=== PATIENT | male | born 1945 | race Caucasian/White ===

== ENCOUNTER → 2020-05-27 08:20 | Outpatient (CLI) | payer MEDICARE, OTHER, SELFPAY | PROVIDERS: Family Provider Family Medicine; PCP Family Medicine; Referring Provider Anesthesiology Pain Medicine; Visit Provider Anesthesiology Pain Medicine | DX: M25.551 Pain in right hip (principal); Z53.9 Procedure and treatment not carried out, unspecified reason; Z53.20 Procedure and treatment not carried out because of patient's decision for unspecified reasons ==

== ENCOUNTER → 2023-06-23 07:46 | Outpatient (CLI) | payer MEDICARE, OTHER, SELFPAY ==
--- NOTE | 2023-06-23 | DI.MRI.S_ITS ---
PROCEDURE: MR PELIS WO/W CON INDICATIONS: Elevated prostate specific antigen [PSA] TECHNIQUE: Coronal HASTE, axial T1 FSE with fat saturation, 3-plane nonbreath-hold T2 FSE. After the administration of contrast, dynamic axial, delayed axial and coronal VIBE or 2-D FLASH with fat saturation through the pelvis. Optional diffusion weighted imaging and ADC may be performed. COMPARISON: None. FINDINGS: Image quality: T2 sequences are decreased quality due to motion. Diffusion weighted and dynamic contrast enhanced images are diagnostic. Prostate: Gland size is 5.6 x 5.7 x 4.9 cm; ellipsoid gland volume is 81 mL. The gland is heterogeneous with morphology of BPH and obliteration of the peripheral zone, particularly given motion artifact. There are a few focal areas in the right central and prostate of pre T1 hyperintensity and T2 hypointensity suggesting calcification. Lesion one: Indistinct, non circumscribed area of hypointensity left central anterior transition zone from base to mid gland. This area measures roughly 2.0 cm in oblique coronal direction measured on the coronal images. Vague, mild T2 hypointensity and mild restricted diffusion. No definite dynamic enhancement. Overall score PI-RADS three. Lesion two: Indistinct bandlike area of T2 isointensity right posterolateral peripheral zone mid gland towards apex. The capsular margin in this area is indistinct, though this may be due to motion artifact. There is increased diffusion signal and only minimally decreased ADC signal. Overall PI-RADS score is three Genitourinary system: There is T1 hyperintense material filling a portion of the left seminal vesicles. Bladder wall thickness is normal. Distal ureters are non distended. Bowel and peritoneum: Extensive distal colonic diverticulosis. No pathologic free pelvic fluid. Inferior colon and small bowel loops are otherwise normal. Nodes and vessels: No pelvic or inguinal adenopathy by size criteria. Iliac vessels are normal in caliber. Soft tissues: No inguinal hernias. Bones: Right hip arthroplasty. Marrow demonstrates normal overall signal, without lesions to suggest metastases. IMPRESSION: 1. There are two equivocal areas of abnormal signal in the prostate gland as described, both categorized as PI-RADS three. 2. Morphology of BPH. 3. Small amount of proteinaceous material seen in the left seminal vesicles suggestive of hemorrhage, consistent with history. 4. Colonic diverticulosis without MR evidence of acute diverticulitis. Dictated by: Ángela Garay M.D. on 06/23/2023 at 16:33 Approved by: Ángela Garay M.D. on 06/23/2023 at 16:54
== END ==
PROVIDERS: Family Provider Family Medicine; PCP Nurse Practitioner Family; Referring Provider Specialist; Visit Provider Specialist
DX: N42.9 Disorder of prostate, unspecified (principal); R97.20 Elevated prostate specific antigen [PSA]; K57.90 Diverticulosis of intestine, part unspecified, without perforation or abscess without bleeding
CPT/HCPCS: 72197; A9579

== ENCOUNTER → 2023-10-05 10:12 | Outpatient (CLI) | payer MEDICARE, OTHER, SELFPAY ==
[2023-10-18 13:38] LABS: PSA Free % 28.4 % (.); PSA, Total 5.7 ng/mL (0.0-4.0)
== END ==
PROVIDERS: Family Provider Family Medicine; PCP Family Medicine; Referring Provider Specialist; Visit Provider Specialist
DX: R97.20 Elevated prostate specific antigen [PSA] (principal)
CPT/HCPCS: 36415; 84153; 84154

== ENCOUNTER → 2024-04-19 09:07 | Outpatient (CLI) | payer MEDICARE, OTHER, SELFPAY ==
[2024-04-21 11:28] LABS: PSA Free % 28.1 % (.); PSA, Total 7.3 ng/mL (0.0-4.0)
== END ==
PROVIDERS: Family Provider Family Medicine; PCP Family Medicine; Referring Provider Specialist; Visit Provider Specialist
DX: R97.20 Elevated prostate specific antigen [PSA] (principal)
CPT/HCPCS: 36415; 84153; 84154

== ENCOUNTER → 2024-08-23 07:40 | Outpatient (CLI) | payer MEDICARE, OTHER, SELFPAY ==
[2024-08-24 09:12] LABS: PSA Free % 24.4 % (.); PSA, Total 7.8 ng/mL (0.0-4.0)
== END ==
PROVIDERS: Family Provider Family Medicine; PCP Family Medicine; Referring Provider Urology; Visit Provider Urology
DX: R97.20 Elevated prostate specific antigen [PSA] (principal)
CPT/HCPCS: 36415; 84153; 84154

== ENCOUNTER → 2025-03-21 07:42 | Outpatient (CLI) | payer MEDICARE, OTHER, SELFPAY ==
[2025-03-22 07:11] LABS: PSA Free % 27.7 % (.); PSA, Total 7.5 ng/mL (0.0-4.0)
== END ==
PROVIDERS: Family Provider Family Medicine; PCP Family Medicine; Referring Provider Urology; Visit Provider Urology
DX: R97.20 Elevated prostate specific antigen [PSA] (principal)
CPT/HCPCS: 36415; 84153; 84154